=== PATIENT | female | born 1985 | race Caucasian/White ===

== ENCOUNTER → 2019-08-01 | Outpatient (CLI) | payer OTHER ==
[~2019-08-01] MED LIST: BCPs; CIPR500 PO; HYDACE5 PO; OXYACE5T PO; PENVK500 PO; PROM25 PO; RXOXYACE PO; SERT50
[2019-08-02 18:06] LABS: HPV 16 Negative (Negative); HPV 18 Negative (Negative); HPV OTHER HR TYPES Negative (Negative)
== END | disposition home or self-care (01) ==
LOC: LAB 09:40 → LAB SHORT 09:40
PROVIDERS: Nurse Practitioner Women's Health
DX: Z12.4 Encounter for screening for malignant neoplasm of cervix (principal); Z91.89 Other specified personal risk factors, not elsewhere classified
CPT/HCPCS: 87624; G0123

== ENCOUNTER → 2019-11-24 | Outpatient (CLI) | payer OTHER ==
[2019-11-24 14:17] LABS: Influenza A Negative (NEGATIVE); Influenza B Negative (NEGATIVE)
== END | disposition home or self-care (01) ==
LOC: LAB SHORT 12:21 → LAB 12:21
PROVIDERS: Nurse Practitioner Family
DX: R05 Cough (principal); R50.9 Fever, unspecified
CPT/HCPCS: 87804

== ENCOUNTER 2020-12-23 14:45 | Emergency (ER) | payer OTHER ==
[~2020-12-23] VITALS: Ht 170.2 cm; Wt 86.2 kg
[2020-12-23] MEDS ORDERED: Norco 7.5-3251 EACH PO (15:42)
[2020-12-23] MEDS ORDERED: IBUP800 PO (15:42)
== END 2020-12-23 15:58 | disposition home or self-care (01) ==
LOC: ER 14:45
DX: N75.1 Abscess of Bartholin's gland (principal); Z88.8 Allergy status to other drugs, medicaments and biological substances; Z88.1 Allergy status to other antibiotic agents; Z79.899 Other long term (current) drug therapy
CPT/HCPCS: 56420; 99283-25; A9270

== ENCOUNTER 2020-12-26 12:12 | Emergency (ER) | payer OTHER ==
[~2020-12-26] VITALS: Ht 170.2 cm; Wt 86.2 kg
[~2020-12-26 12:12] MED LIST changes: +IBUP800 PO; +Norco 7.5-3251 EACH PO
[2020-12-26 13:10] LABS: BASOPHILS ABSOLUTE AUTO 0.03 K/mm3 (0.00-0.23); BASOPHILS PERCENT AUTO 1 % (0-2); EOSINOPHILS ABSOLUTE AUTO 0.06 K/mm3 (0.00-0.68); EOSINOPHILS PERCENT AUTO 2 % (0-6); Hematocrit 34.7 % (33.0-51.0); Hemoglobin 11.4 g/dL (11.5-16.0); IMMATURE GRAN ABSOLUTE AUTO 0.02 K/mm3 (0.00-0.10); IMMATURE GRAN PERCENT AUTO 1 % (0-1); LYMPHOCYTES ABSOLUTE AUTO 1.15 K/mm3 (0.84-5.20); LYMPHOCYTES PERCENT AUTO 32 % (21-46); MONOCYTES ABSOLUTE AUTO 0.32 K/mm3 (0.16-1.47); MONOCYTES PERCENT AUTO 9 % (4-13); Mean Corpuscular HGB 31.8 pg (26.0-34.0); Mean Corpuscular HGB Conc 32.9 g/dL (31.5-36.5); Mean Corpuscular Volume 97 fL (80-100); Mean Platelet Volume 10.4 fL (9.1-12.4); NEUTROPHILS ABSOLUTE AUTO 2.05 K/mm3 (1.96-9.15); NEUTROPHILS PERCENT AUTO 56 % (41-73); Platelet Count 302 K/mm3 (150-400); RDW Coefficient Variation 14.4 % (11.7-14.2); RDW Standard Deviation 50.4 fL (35.1-46.3); Red Blood Cell Count 3.59 M/mm3 (3.80-5.20); White Blood Cell Count 3.63 K/mm3 (4.00-11.30)
[2020-12-26 13:37] LABS: Alanine Aminotransfer (ALT/SGP 29 U/L (12-78); Albumin, Blood 3.4 g/dL (3.4-5.0); Albumin/Globulin Ratio 0.8 (0.8-1.8); Alk Phos 52 U/L (50-136); Anion Gap 3 mmol/L (6-16); Aspartate Aminotrans (AST/SGOT 47 U/L (12-37); Bilirubin, Total 0.6 mg/dL (0.1-1.0); Blood Urea Nitrogen 18 mg/dL (8-24); Bun/Creatinine Ratio 25.9 (12.0-20.0); CO2, Blood 25 mmol/L (21-32); Calcium, Blood 8.8 mg/dL (8.5-10.1); Chloride, Blood 109 mmol/L (98-108); Globulin, Blood 4.4 g/dL (2.2-4.0); Glomerular Filtration Rate >60 (60-); Glucose, Blood 76 mg/dL (70-99); Potassium, Blood 7.1 mmol/L (3.5-5.5); Sodium, Blood 137 mmol/L (136-145); Total Protein, Blood 7.8 g/dL (6.4-8.2)
[2020-12-26 14:37] LABS: Alanine Aminotransfer (ALT/SGP 22 U/L (12-78); Albumin, Blood 3.7 g/dL (3.4-5.0); Albumin/Globulin Ratio 0.9 (0.8-1.8); Alk Phos 54 U/L (50-136); Anion Gap 6 mmol/L (6-16); Aspartate Aminotrans (AST/SGOT 23 U/L (12-37); Bilirubin, Total 0.2 mg/dL (0.1-1.0); Blood Urea Nitrogen 19 mg/dL (8-24); Bun/Creatinine Ratio 24.2 (12.0-20.0); CO2, Blood 25 mmol/L (21-32); Calcium, Blood 8.6 mg/dL (8.5-10.1); Chloride, Blood 109 mmol/L (98-108); Creatinine, Blood 0.78 mg/dL (0.40-1.00); Globulin, Blood 3.9 g/dL (2.2-4.0); Glomerular Filtration Rate >60 (60-); Glucose, Blood 88 mg/dL (70-99); Sodium, Blood 140 mmol/L (136-145); Total Protein, Blood 7.6 g/dL (6.4-8.2)
[2020-12-26 14:39] LABS: Potassium, Blood 4.8 mmol/L (3.5-5.5)
[2020-12-26] MEDS ORDERED: AMOCLA875 PO (15:31)
== END 2020-12-26 16:20 | disposition home or self-care (01) ==
LOC: ER 12:12
PROVIDERS: Physician Assistant
DX: N75.1 Abscess of Bartholin's gland (principal); Z88.5 Allergy status to narcotic agent; Z88.8 Allergy status to other drugs, medicaments and biological substances; Z88.1 Allergy status to other antibiotic agents; Z79.899 Other long term (current) drug therapy
CPT/HCPCS: 56420; 80053; 85025; 93005; 93010; 96365-59; 96375-59; 99283-25; J0295; J2270

== ENCOUNTER 2020-12-27 13:15 | Emergency (ER) | payer OTHER ==
[~2020-12-27] VITALS: Ht 170.2 cm; Wt 77.1 kg
[~2020-12-27 13:15] MED LIST changes: +AMOCLA875 PO
== END 2020-12-27 14:52 | disposition home or self-care (01) ==
LOC: ER 13:15
DX: N76.4 Abscess of vulva (principal); Z88.8 Allergy status to other drugs, medicaments and biological substances; Z79.899 Other long term (current) drug therapy
CPT/HCPCS: 99282

== ENCOUNTER 2021-04-18 19:24 | Emergency (ER) | payer OTHER ==
[~2021-04-18] VITALS: Ht 175.3 cm; Wt 86.2 kg
[2021-04-18] MEDS ORDERED: Methotrexa25 MG/1 ML (19:44)
[2021-04-18] MEDS ORDERED: BUSPIRONE 5 MG (19:45)
[2021-04-18] MEDS ORDERED: ESCITALOPRAM (19:45)
[2021-04-18 20:26] LABS: BASOPHILS ABSOLUTE AUTO 0.01 K/mm3 (0.00-0.23); BASOPHILS PERCENT AUTO 0 % (0-2); EOSINOPHILS ABSOLUTE AUTO 0.11 K/mm3 (0.00-0.68); EOSINOPHILS PERCENT AUTO 1 % (0-6); Hematocrit 35.7 % (33.0-51.0); Hemoglobin 11.8 g/dL (11.5-16.0); IMMATURE GRAN ABSOLUTE AUTO 0.03 K/mm3 (0.00-0.10); IMMATURE GRAN PERCENT AUTO 0 % (0-1); LYMPHOCYTES ABSOLUTE AUTO 1.43 K/mm3 (0.84-5.20); LYMPHOCYTES PERCENT AUTO 19 % (21-46); MONOCYTES ABSOLUTE AUTO 0.41 K/mm3 (0.16-1.47); MONOCYTES PERCENT AUTO 5 % (4-13); Mean Corpuscular HGB 32.2 pg (26.0-34.0); Mean Corpuscular HGB Conc 33.1 g/dL (31.5-36.5); Mean Corpuscular Volume 97 fL (80-100); Mean Platelet Volume 10.1 fL (9.1-12.4); NEUTROPHILS PERCENT AUTO 74 % (41-73); Platelet Count 281 K/mm3 (150-400); RDW Coefficient Variation 13.3 % (11.7-14.2); RDW Standard Deviation 47.5 fL (35.1-46.3); Red Blood Cell Count 3.67 M/mm3 (3.80-5.20); White Blood Cell Count 7.59 K/mm3 (4.00-11.30)
[2021-04-18 20:55] LABS: Alanine Aminotransfer (ALT/SGP 24 U/L (12-78); Albumin, Blood 3.9 g/dL (3.4-5.0); Albumin/Globulin Ratio 0.9 (0.8-1.8); Alk Phos 55 U/L (50-136); Anion Gap 8 mmol/L (6-16); Aspartate Aminotrans (AST/SGOT 20 U/L (12-37); Bilirubin, Total 0.2 mg/dL (0.1-1.0); Blood Urea Nitrogen 22 mg/dL (8-24); Bun/Creatinine Ratio 33.9 (12.0-20.0); CO2, Blood 22 mmol/L (21-32); Calcium, Blood 9.2 mg/dL (8.5-10.1); Chloride, Blood 107 mmol/L (98-108); Creatinine, Blood 0.65 mg/dL (0.40-1.00); Globulin, Blood 4.2 g/dL (2.2-4.0); Glomerular Filtration Rate >60 (60-); Glucose, Blood 95 mg/dL (70-99); Potassium, Blood 3.5 mmol/L (3.5-5.5); Sodium, Blood 137 mmol/L (136-145); Total Protein, Blood 8.1 g/dL (6.4-8.2)
[2021-04-18] MEDS ORDERED: CODACE30 PO (22:09)
== END 2021-04-18 22:26 | disposition home or self-care (01) ==
LOC: ER 19:24
PROVIDERS: Emergency Medicine
DX: S20.212A Contusion of left front wall of thorax, initial encounter (principal); Z88.5 Allergy status to narcotic agent; Z88.1 Allergy status to other antibiotic agents; Z88.8 Allergy status to other drugs, medicaments and biological substances; V49.40XA Driver injured in collision with unspecified motor vehicles in traffic accident, initial encounter; Y92.410 Unspecified street and highway as the place of occurrence of the external cause
CPT/HCPCS: 36415; 70450; 71260; 72125; 80053; 83690; 85025; 96374-59; 96375; 99284-25; J1885; J2060; Q9967

== ENCOUNTER → 2021-10-31 | Outpatient (CLI) | payer OTHER ==
[~2021-10-31] MED LIST changes: +BUSPIRONE 5 MG; +CODACE30 PO; +ESCITALOPRAM; +Methotrexa25 MG/1 ML
== END | disposition home or self-care (01) ==
LOC: LAB SHORT 15:20
DX: R35.0 Frequency of micturition (principal)
CPT/HCPCS: 87086

== ENCOUNTER 2022-07-14 07:46 | Emergency (ER) | payer OTHER ==
[~2022-07-14] VITALS: Ht 170.2 cm; Wt 78.0 kg
[2022-07-14] MEDS ORDERED: ESCI10 PO (08:04)
[2022-07-14] MEDS ORDERED: FOLI1 PO (08:04)
[2022-07-14] MEDS ORDERED: BUSPIRONE HCL5 M6 PO (08:04)
[2022-07-14 08:50] LABS: Albumin, Blood 3.7 g/dL (3.4-5.0); Albumin/Globulin Ratio 1.2 (0.8-1.8); Bilirubin, Total 0.2 mg/dL (0.1-1.0); Bun/Creatinine Ratio 17.6 (12.0-20.0); Calcium, Blood 9.1 mg/dL (8.5-10.1); Creatinine, Blood 0.68 mg/dL (0.40-1.00); Globulin, Blood 3.2 g/dL (2.2-4.0); Potassium, Blood 4.5 mmol/L (3.5-5.5); Total Protein, Blood 6.9 g/dL (6.4-8.2)
[2022-07-14 09:07] LABS: BASOPHILS ABSOLUTE AUTO 0.01 K/mm3 (0.00-0.23); BASOPHILS PERCENT AUTO 0 % (0-2); EOSINOPHILS ABSOLUTE AUTO 0.13 K/mm3 (0.00-0.68); EOSINOPHILS PERCENT AUTO 4 % (0-6); Hematocrit 35.8 % (33.0-51.0); IMMATURE GRAN PERCENT AUTO 0 % (0-1); LYMPHOCYTES ABSOLUTE AUTO 1.15 K/mm3 (0.84-5.20); LYMPHOCYTES PERCENT AUTO 33 % (21-46); MONOCYTES ABSOLUTE AUTO 0.33 K/mm3 (0.16-1.47); MONOCYTES PERCENT AUTO 10 % (4-13); Mean Corpuscular HGB 31.3 pg (26.0-34.0); Mean Corpuscular HGB Conc 33.5 g/dL (31.5-36.5); Mean Corpuscular Volume 93 fL (80-100); Mean Platelet Volume 10.8 fL (9.1-12.4); NEUTROPHILS ABSOLUTE AUTO 1.83 K/mm3 (1.96-9.15); NEUTROPHILS PERCENT AUTO 53 % (41-73); Platelet Count 236 K/mm3 (150-400); RDW Coefficient Variation 12.8 % (11.7-14.2); RDW Standard Deviation 43.8 fL (35.1-46.3); Red Blood Cell Count 3.84 M/mm3 (3.80-5.20); White Blood Cell Count 3.45 K/mm3 (4.00-11.30)
== END 2022-07-14 11:13 | disposition home or self-care (01) ==
LOC: ER 07:46
PROVIDERS: Emergency Medicine
DX: R07.9 Chest pain, unspecified (principal); F17.290 Nicotine dependence, other tobacco product, uncomplicated
CPT/HCPCS: 36415; 71045; 80053; 83690; 84484; 85025; 93005; 93010; 99284-25

== ENCOUNTER → 2024-03-13 | Outpatient (CLI) | payer OTHER ==
[~2024-03-13] MED LIST changes: +BUSPIRONE HCL5 M6 PO; +ESCI10 PO; +FOLI1 PO
== END ==
LOC: LAB 13:38 → LAB SHORT 13:38
DX: N39.0 Urinary tract infection, site not specified (principal)
CPT/HCPCS: 87077; 87086; 87186

== ENCOUNTER → 2025-04-06 | Outpatient (CLI) | payer OTHER ==
[~2025-04-06] MED LIST changes: +ONDA4ODT MM
[2025-04-10 12:53] LABS: HEPATITIS B SURFACE ANTIBODY 32.26 IU/L
[2025-04-10 17:44] LABS: HIV 1,2 COMBO ANTIGEN/ANTIBODY Negative (Negative)
[2025-04-11 17:48] LABS: HCV QNT BY NAAT (IU/ML) Not Detected; HCV QNT BY NAAT (LOG IU/ML) Not Detected; HCV QNT BY NAAT INTERP Not Detected (Not Detected)
== END | disposition home or self-care (01) ==
LOC: LAB SHORT 17:14 → LAB 17:14
PROVIDERS: Chiropractor
DX: Z20.9 Contact with and (suspected) exposure to unspecified communicable disease (principal)
CPT/HCPCS: 84460; 87340; 87389

== ENCOUNTER 2025-05-09 13:54 | Emergency (ER) | payer OTHER ==
[~2025-05-09] VITALS: Ht 172.7 cm; Wt 77.1 kg
[2025-05-09 14:48] LABS: BASOPHILS ABSOLUTE AUTO 0.06 K/mm3 (0.00-0.23); BASOPHILS PERCENT AUTO 1 % (0-2); EOSINOPHILS ABSOLUTE AUTO 0.05 K/mm3 (0.00-0.68); EOSINOPHILS PERCENT AUTO 1 % (0-6); Hematocrit 35.2 % (33.0-51.0); Hemoglobin 11.5 g/dL (11.5-16.0); IMMATURE GRAN ABSOLUTE AUTO 0.02 K/mm3 (0.00-0.10); IMMATURE GRAN PERCENT AUTO 0 % (0-1); LYMPHOCYTES ABSOLUTE AUTO 1.64 K/mm3 (0.84-5.20); LYMPHOCYTES PERCENT AUTO 23 % (21-46); MONOCYTES ABSOLUTE AUTO 0.36 K/mm3 (0.16-1.47); MONOCYTES PERCENT AUTO 5 % (4-13); Mean Corpuscular HGB Conc 32.7 g/dL (31.5-36.5); Mean Corpuscular Volume 90 fL (80-100); NEUTROPHILS ABSOLUTE AUTO 4.97 K/mm3 (1.96-9.15); NEUTROPHILS PERCENT AUTO 70 % (41-73); NRBC ABSOLUTE 0.00 K/mm3 (0.00-0.02); NRBC Auto 0.0 /100 WBC (0.0-0.2); Platelet Count 303 K/mm3 (150-400); RDW Coefficient Variation 14.0 % (11.7-14.2); RDW Standard Deviation 45.3 fL (35.1-46.3)
[2025-05-09 15:09] LABS: Alanine Aminotransfer (ALT/SGP 17 U/L (12-78); Albumin, Blood 4.1 g/dL (3.4-5.0); Albumin/Globulin Ratio 1.3 (0.8-1.8); Anion Gap 8 mmol/L (3-11); Aspartate Aminotrans (AST/SGOT 11 U/L (12-37); Beta HCG, Quantitative, Serum <1 mIU/mL (0-3); Bilirubin, Total 0.3 mg/dL (0.1-1.0); Blood Urea Nitrogen 16 mg/dL (8-24); CO2, Blood 28 mmol/L (21-32); Calcium, Blood 8.7 mg/dL (8.5-10.1); Chloride, Blood 106 mmol/L (98-108); Creatinine, Blood 0.64 mg/dL (0.40-1.00); Globulin, Blood 3.1 g/dL (2.2-4.0); Glucose, Blood 100 mg/dL (70-99); Potassium, Blood 3.6 mmol/L (3.5-5.5); Sodium, Blood 138 mmol/L (136-145); Total Protein, Blood 7.2 g/dL (6.4-8.2)
[2025-05-09] MEDS ORDERED: NS 1,000 ML IV SCH (16:25)
[2025-05-09] MEDS ORDERED: Ondansetron HCl 2 MG / ML 2ML Vial IV ONE (16:25)
[2025-05-09] MEDS ORDERED: Morphine Sulfate 4 MG/1 ML Injection IV ONE (16:25)
[2025-05-09 16:52] LABS: Source, Urine Clean Catch
[2025-05-09 16:54] LABS: Bilirubin, Urine Neg (Neg); Glucose Qualitative, Urine Neg (Neg); Ketones, Urine Neg (Neg); Leukocyte Esterase, Urine Neg (Neg); Protein, Urine Neg (Neg); Specific Gravity, Urine 1.005 (1.003-1.022); Urobilinogen, Urine NORM (Normal)
[2025-05-09 16:59] LABS: Color, Urine Pale Yellow (P-Yellow)
[2025-05-09 17:04] VITALS: BP 122/73
[2025-05-09] MEDS ORDERED: ACET500 PO (17:36)
[2025-05-09] MEDS ORDERED: ONDA4 PO (17:38)
== END 2025-05-09 18:05 | disposition home or self-care (01) ==
LOC: ER 13:54
PROVIDERS: Student in an Organized Health Care Education/Training Program
DX: N83.201 Unspecified ovarian cyst, right side (principal); F17.290 Nicotine dependence, other tobacco product, uncomplicated; Z88.5 Allergy status to narcotic agent; Z88.8 Allergy status to other drugs, medicaments and biological substances; Z79.899 Other long term (current) drug therapy
CPT/HCPCS: 74177; 76830; 76857; 80053; 81003; 83690; 84702; 85025; 96361; 96374-59; 96375; 99284-25; J2270; J2405; J7030; Q9967

== ENCOUNTER 2025-07-06 11:36 | Inpatient (IN) | payer OTHER ==
[2025-07-06] VITALS (19 sets, daily range): BP systolic 99–139; BP diastolic 43–82
[~2025-07-06] VITALS: Ht 175.3 cm; Wt 77.5 kg
[~2025-07-06 11:36] MED LIST changes: +ACET500 PO; -Methotrexa25 MG/1 ML; +Methotrexa25 MG/1 ML SC; +ONDA4 PO
[2025-07-06] MEDS ORDERED: CeFAZolin Sodium 2,000 MG in NS 100 ML IV SCH (12:10)
--- NOTE | 2025-07-06 12:54 | NUR ---
Pre-Op teaching done. Pt verbalizes understanding. Patient confirms NPO status and agrees with scheduled surgery. History, Chart, Medications and Allergies reviewed before start of procedure. Ambulatory in Day Surgery.
[2025-07-06] MEDS ORDERED: Bupivacaine 0.5% W/EPI 1:200000 SDV 30 ML Vial ONE (13:16)
[2025-07-06] MEDS ORDERED: Midazolam HCl 1MG / ML 2ML Vial ONE (13:26)
[2025-07-06] MEDS ORDERED: Dexamethasone Sod Phos 10 MG/ML 1ML VIAL ONE (13:41)
[2025-07-06] MEDS ORDERED: Ondansetron HCl 2 MG / ML 2ML Vial ONE (13:41)
[2025-07-06] MEDS ORDERED: Labetalol HCL 5 MG/ML 4ML Injection (Single Dose) ONE (13:59)
[2025-07-06] MEDS ORDERED: Phenylephrine HCl 100 MCG/ML-NS 10MLSYR (1MG/10ML) ONE (14:17)
[2025-07-06] MEDS ORDERED: HYDROmorphone HCl/Pf 1MG SYR ONE ×2 (15:16→16:23)
[2025-07-06] MEDS ORDERED: HYDROmorphone HCl/Pf 1MG SYR IV PRN ×2 (15:35→15:40)
[2025-07-06] MEDS ORDERED: LORazepam 2 MG/ML 1ML Injection IV PRN (15:35)
[2025-07-06] MEDS ORDERED: Ondansetron HCl 2 MG / ML 2ML Vial IV PRN ×2 (15:35→15:45)
[2025-07-06] MEDS ORDERED: Sugammadex Sodium 200 MG/2ML SDV (100 MG/ML) ONE (15:36)
[2025-07-06] MEDS ORDERED: Prochlorperazine Edisylate 10 mg Vial IV PRN (15:40)
[2025-07-06] MEDS ORDERED: FentaNYL Citrate 50 MCG/ML 2 ML Injection IV PRN (15:40)
[2025-07-06] MEDS ORDERED: HYDROcodone 5-APAP 325 TAB PO PRN (15:45)
[2025-07-06] MEDS ORDERED: Ketorolac Tromethamine 30mg Vial IV PRN (15:45)
[2025-07-06] MEDS ORDERED: FLU VACC TS2025-26(6MOS UP)/PF 45 MCG/0.5 ML SYRINGE IM SCH (15:50)
[2025-07-06] MEDS ORDERED: LORazepam 2 MG/ML 1ML Injection ONE (15:51)
[2025-07-06] MEDS ORDERED: fentaNYL citrate 20 MCG/ML 30MLSYR IV PRN (15:55)
[2025-07-06] MEDS ORDERED: Prochlorperazine Edisylate 10 mg Vial ONE (16:07)
[2025-07-06] MEDS ORDERED: FentaNYL Citrate 50 MCG/ML 2 ML Injection ONE (16:23)
[2025-07-06] MEDS ORDERED: Ketorolac Tromethamine 30mg Vial ONE (17:17)
--- NOTE | 2025-07-06 17:40 | NUR ---
ARRIVAL TO UNIT PT IS A/OX4, REPORTING NAUSEA MEDICATED PER EMAR. PT IS REPORTING 10/10 PAIN. MEDICATED PER EMAR. HEATING PAD IN PLACE, LIGHTS DIMMED. FAMILY IN ROOM,ABD BINDER IN PLACE TO DECREASE PAIN. SURGICAL SITES C/D/I. ABLE TO MAKE NEEDS KNOWN CALL LIGHT IN REACH. VSS.
[2025-07-07] MEDS ORDERED: Ketorolac Tromethamine 30mg Vial IV SCH
[2025-07-07 03:35] VITALS: BP 118/65
--- NOTE | 2025-07-07 04:34 | NUR ---
SHIFT SUMMARY ABHINAV WAS ALERT AND FULLY ORIENTED ON ASSESSMENT. PT ON SHIP WASHER FOR PAIN MANAGEMENT. PAIN MODERATLEY WELL MANAGED AT THIS TIME. INSCISION AND LAP SITE C/D/I. SCANT TO NO VAGINAL BLEEDING NOTED. WALLACE IN PLACE. PT HAS NOT BEEN OOB YET. PT DENIES NAUSEA, SOB, OR CHEST PAIN. NO ACUTE EVENTS TONIGHT, NO NOTED CHANGES TO PT CONDITION.
[2025-07-07 05:05] LABS: BASOPHILS ABSOLUTE AUTO 0.02 K/mm3 (0.00-0.23); BASOPHILS PERCENT AUTO 0 % (0-2); EOSINOPHILS ABSOLUTE AUTO 0.00 K/mm3 (0.00-0.68); EOSINOPHILS PERCENT AUTO 0 % (0-6); Hematocrit 26.7 % (33.0-51.0); Hemoglobin 8.9 g/dL (11.5-16.0); IMMATURE GRAN ABSOLUTE AUTO 0.03 K/mm3 (0.00-0.10); IMMATURE GRAN PERCENT AUTO 0 % (0-1); LYMPHOCYTES ABSOLUTE AUTO 1.00 K/mm3 (0.84-5.20); LYMPHOCYTES PERCENT AUTO 11 % (21-46); MONOCYTES ABSOLUTE AUTO 0.90 K/mm3 (0.16-1.47); MONOCYTES PERCENT AUTO 10 % (4-13); Mean Corpuscular HGB Conc 33.3 g/dL (31.5-36.5); Mean Corpuscular Volume 89 fL (80-100); NEUTROPHILS ABSOLUTE AUTO 7.30 K/mm3 (1.96-9.15); NEUTROPHILS PERCENT AUTO 79 % (41-73); NRBC ABSOLUTE 0.00 K/mm3 (0.00-0.02); NRBC Auto 0.0 /100 WBC (0.0-0.2); Platelet Count 246 K/mm3 (150-400); RDW Coefficient Variation 15.3 % (11.7-14.2); RDW Standard Deviation 49.0 fL (35.1-46.3)
[2025-07-07 07:37] VITALS: BP 132/62
[2025-07-07 14:34] VITALS: BP 116/74
--- NOTE | 2025-07-07 16:28 | NUR ---
SHIFT SUMMARY PATIENT IS AOX4, POD1 LAP TO OPEN TOTAL HYSTER. WOUND GLUE TO INICISIONS CONTENT ARCHITECT, C/D/I. PATIENT TOLERATING PO INTAKE, VOIDING SPONTANEOUSLY. STILL USING RESORT KEEPER AT THIS TIME. ABD BINDER IN PLACE, ONE ASSIST TO AMBULATE. PLAN FOR DC TOMORROW. VSS, AND CALL LIGHT IN REACH.
[2025-07-07 19:15] VITALS: BP 129/84
[2025-07-08 05:59] VITALS: BP 120/60
--- NOTE | 2025-07-08 06:25 | NUR ---
SHIFT SUMMARY ABHINAV WAS ALERT AND FULLY ORIENTED ON ASSESSMENT. INSCISION/ LAP SITE C/D/I. PAIN MODERATELY WELL MANAGED. BORDER POLICE VIAL CHANGED WITH CHARGE RENEE. PT AMBULATING AND VOIDING APPROPRIATELY. DENIES NAUSEA, CHEST PAIN, SOB. LITTLE TO NO VAGINAL BLEEDING. NO ACUTE EVENTS OR NOTED CHANGES TO PT CONDITION.
--- NOTE | 2025-07-08 13:55 | NUR ---
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 SHOWERED. UP IN ROOM EASILY. TOLERATING SMALL BITES OF FOOD & DRINKING FLUIDS WELL. URINE CLEAR. WAITING FOR DR TO ROUND & HOPEFUL TO GO HOME.
--- NOTE | 2025-07-08 14:32 | NUR ---
DISCHARGE PATIENT POD2 LAP TO OPEN HYSTER, SITES CLOSED WITH WOUND GLUE, C/D/I. ABD BINDER IN PLACE. IV TAKEN OUT INTACT. PATIENT TOLERATING PO INTAKE VOIDING. PAIN WELL MANAGED. ALL INSTRUCTIONS READ AND SIGNED AKNOWLEDGEMENT.PATIENT LEAVES WITH FAMILY IN WHEEL CHAIR.
[2025-07-08] MEDS ORDERED: Percocet 5-3251 EACH PO (14:35)
[2025-07-08] MEDS ORDERED: IBU800 M1 PO (14:36)
== END 2025-07-08 14:48 | disposition home or self-care (01) | DRG 743 ==
LOC: ORSCMMR 11:36 → ORD 13:15 → ORSCMMR 13:15 → ORD 13:30 → ORSCMMR 15:42 → SURS 15:42
PROVIDERS: ADMIT Obstetrics & Gynecology
PROC: 0UT90ZZ Resection of Uterus, Open Approach (ICD-10-PCS; principal; 2025-07-06 13:15)
PROC: 0UJD4ZZ Inspection of Uterus and Cervix, Percutaneous Endoscopic Approach (ICD-10-PCS; principal; 2025-07-06 13:15)
PROC: 0UN70ZZ Release Bilateral Fallopian Tubes, Open Approach (ICD-10-PCS; principal; 2025-07-06 13:15)
PROC: 0UT70ZZ Resection of Bilateral Fallopian Tubes, Open Approach (ICD-10-PCS; principal; 2025-07-06 13:15)
PROC: 3E03329 Introduction of Other Anti-infective into Peripheral Vein, Percutaneous Approach (ICD-10-PCS; principal; 2025-07-06 13:15)
PROC: 3E02340 Introduction of Influenza Vaccine into Muscle, Percutaneous Approach (ICD-10-PCS; principal; 2025-07-06 13:15)
PROC: 0UT20ZZ Resection of Bilateral Ovaries, Open Approach (ICD-10-PCS; principal; 2025-07-06 13:15)
DX: N80.9 Endometriosis, unspecified (principal); N92.0 Excessive and frequent menstruation with regular cycle; N83.201 Unspecified ovarian cyst, right side; N73.6 Female pelvic peritoneal adhesions (postinfective); M32.9 Systemic lupus erythematosus, unspecified; Z79.899 Other long term (current) drug therapy; Z88.8 Allergy status to other drugs, medicaments and biological substances; Z53.31 Laparoscopic surgical procedure converted to open procedure
CPT/HCPCS: 36415; 85025; 88307; 94762; A9270; J0690; J0780; J1100; J1171; J1885; J2060; J2250; J2371; J2405; J2704; J3010; J7120

== ENCOUNTER 2025-07-25 09:03 | Emergency (ER) | payer OTHER ==
[~2025-07-25] VITALS: Ht 172.7 cm; Wt 72.6 kg
[~2025-07-25 09:03] MED LIST changes: +IBU800 M1 PO; +Percocet 5-3251 EACH PO
[2025-07-25] MEDS ORDERED: Ondansetron HCl 2 MG / ML 2ML Vial IV ONE (09:50)
[2025-07-25] MEDS ORDERED: Morphine Sulfate 4 MG/1 ML Injection IV ONE ×2 (09:50→11:45)
[2025-07-25] MEDS ORDERED: NS 1,000 ML IV SCH (09:50)
[2025-07-25 10:56] LABS: BASOPHILS ABSOLUTE AUTO 0.03 K/mm3 (0.00-0.23); BASOPHILS PERCENT AUTO 1 % (0-2); EOSINOPHILS ABSOLUTE AUTO 0.03 K/mm3 (0.00-0.68); EOSINOPHILS PERCENT AUTO 1 % (0-6); Hematocrit 36.1 % (33.0-51.0); Hemoglobin 11.5 g/dL (11.5-16.0); IMMATURE GRAN ABSOLUTE AUTO 0.01 K/mm3 (0.00-0.10); IMMATURE GRAN PERCENT AUTO 0 % (0-1); LYMPHOCYTES ABSOLUTE AUTO 1.07 K/mm3 (0.84-5.20); LYMPHOCYTES PERCENT AUTO 17 % (21-46); MONOCYTES ABSOLUTE AUTO 0.28 K/mm3 (0.16-1.47); MONOCYTES PERCENT AUTO 5 % (4-13); Mean Corpuscular HGB Conc 31.9 g/dL (31.5-36.5); Mean Corpuscular Volume 89 fL (80-100); NEUTROPHILS ABSOLUTE AUTO 4.84 K/mm3 (1.96-9.15); NEUTROPHILS PERCENT AUTO 77 % (41-73); NRBC ABSOLUTE 0.00 K/mm3 (0.00-0.02); NRBC Auto 0.0 /100 WBC (0.0-0.2); Platelet Count 492 K/mm3 (150-400); RDW Coefficient Variation 13.9 % (11.7-14.2); RDW Standard Deviation 45.9 fL (35.1-46.3)
[2025-07-25 11:17] LABS: Alanine Aminotransfer (ALT/SGP 24.0 U/L (12-78); Albumin, Blood 4.7 g/dL (3.4-5.0); Albumin/Globulin Ratio 1.3 (0.8-1.8); Anion Gap 9.0 mmol/L (3-11); Aspartate Aminotrans (AST/SGOT 18.0 U/L (12-37); Bilirubin, Total 0.7 mg/dL (0.1-1.0); Blood Urea Nitrogen 13.0 mg/dL (8-24); CO2, Blood 24.0 mmol/L (21-32); Calcium, Blood 10.2 mg/dL (8.5-10.1); Chloride, Blood 108.0 mmol/L (98-108); Creatinine, Blood 0.75 mg/dL (0.40-1.00); Globulin, Blood 3.7 g/dL (2.2-4.0); Glucose, Blood 120.0 mg/dL (70-99); Potassium, Blood 4.1 mmol/L (3.5-5.5); Sodium, Blood 137.0 mmol/L (136-145); Total Protein, Blood 8.4 g/dL (6.4-8.2)
[2025-07-25 11:27] LABS: Source, Urine Clean Catch
[2025-07-25 11:37] LABS: Bilirubin, Urine Neg (Neg); Color, Urine Yellow (P-Yellow); Glucose Qualitative, Urine Neg (Neg); Ketones, Urine Neg (Neg); Leukocyte Esterase, Urine Neg (Neg); Protein, Urine 1+ (Neg); Specific Gravity, Urine 1.005 (1.003-1.022); Urobilinogen, Urine NORM (Normal)
[2025-07-25] MEDS ORDERED: OXAYDO5 M1 PO (12:56)
[2025-07-25 13:01] VITALS: BP 128/81
== END 2025-07-25 13:09 | disposition home or self-care (01) ==
LOC: ER 09:03
PROVIDERS: Student in an Organized Health Care Education/Training Program
DX: G89.18 Other acute postprocedural pain (principal); R10.31 Right lower quadrant pain; F17.290 Nicotine dependence, other tobacco product, uncomplicated; Z88.8 Allergy status to other drugs, medicaments and biological substances; Z79.899 Other long term (current) drug therapy
CPT/HCPCS: 74177; 80053; 82272; 85025; 96361; 96374-59; 96375; 96376; 99283-25; J2270; J2405; J7030; Q9967

== ENCOUNTER → 2025-08-15 | Outpatient (CLI) | payer OTHER ==
[~2025-08-15] MED LIST changes: +OXAYDO5 M1 PO
[2025-08-15 20:29] LABS: Chlamydia Trachomatis Throat NOT DETECTED (NOT DETECT); Neisseria Gonorrhoea Throat NOT DETECTED (NOT DETECT)
== END ==
LOC: LAB SHORT 15:00 → LAB 15:00
PROVIDERS: Nurse Practitioner Family
DX: J02.9 Acute pharyngitis, unspecified (principal)
CPT/HCPCS: 87081; 87491; 87591